=== PATIENT | male | born 1990 | race Hispanic/Latino ===

== ENCOUNTER 2021-03-23 20:31 | Emergency (ER) | payer OTHER ==
[~2021-03-23] VITALS: Ht 162.6 cm; Wt 63.5 kg
[2021-03-23 20:40] VITALS: BP 131/90
[2021-03-23] MEDS ORDERED: IBUPROFEN 600 MG TABLET PO ONE (21:00)
[2021-03-23] MEDS ORDERED: ACETAMINOPHEN 500 MG TABLET PO ONE (21:00)
[2021-03-23] MEDS ORDERED: BENZ-17 PO (22:50)
== END 2021-03-23 22:59 | disposition home or self-care (01) ==
LOC: EDH 20:49
DX: U07.1 COVID-19 (principal); B34.9 Viral infection, unspecified
CPT/HCPCS: 87635; 87804 ×2; 99283; C9803